=== PATIENT | female | born 1985 | race Caucasian/White ===

== ENCOUNTER 2018-01-04 05:37 | Inpatient (IN) | payer BC ==
[2018-01-04 05:59] VITALS: BMI 31.4
[2018-01-04] MEDS ORDERED: Ondansetron HCl/PF 4 MG/2 ML Vial IVP PRN (08:48)
[2018-01-04] MEDS ORDERED: Ibuprofen 800 MG TAB PO PRN (08:48)
[2018-01-04] MEDS ORDERED: NS / Oxytocin 40 units/1000ml 1,000 ML IV PRN (08:48)
[2018-01-04] MEDS ORDERED: HYDROcodone/Acetaminophen 5/325 mg Tablet PO PRN ×4 (08:48→19:39)
[2018-01-04] MEDS ORDERED: Methylergonovine 0.2 MG/ML VIAL IM PRN ×2 (08:48→19:39)
[2018-01-04] MEDS ORDERED: Lactated Ringer's 1,000 ML IV PRN (08:48)
[2018-01-04] MEDS ORDERED: Promethazine HCl 25 MG/ML VIAL IM PRN (08:48)
[2018-01-04] MEDS ORDERED: Lidocaine 1% (PF) 30 ML VIAL SC PRN (08:48)
[2018-01-04] MEDS ORDERED: Misoprostol 200 MCG TAB PR PRN (08:48)
--- NOTE | 2018-01-04 08:55 | PDOC.LDHP ---
Labor and Delivery H&P Chief complaint: contractions HPI: Patient started having mild contraction last night arou 1999. She rested and tried to sleep. At 0230 on 01/04/18 her contractions woke her up and were every 5mins lasting 45 seconds each. She does not report a loss of amniotic fluid and reports good movement. She arrived at the hospital at approximately 0600. Since arrival her contractions have gotten stronger, longer, and closer together. Current gestational age (weeks): 39 Dating criteria: last menstrual period Grav: 1 Para: 0 Allergies/Adverse Reactions: Allergies Allergy/AdvReac Type Severity Reaction Status Date / Time almond Allergy Mild Rash Verified 01/04/18 06:12 Milk Containing Products Allergy Mild Nausea Verified 01/04/18 06:12 strawberry Allergy Mild Rash Verified 01/04/18 06:12
[2018-01-04 09:05] LABS: Hemoglobin 13.5 g/dL (12.0-16.0); Mean Corpuscular Hemoglobin 31.6 pg (27.0-31.0); Mean Corpuscular Volume 90.5 fL (78.0-98.0); Mean Platelet Volume 7.8 fL (7.4-10.4); Platelet Count 204 thou/uL (130-400); RBC Distribution Width 12.1 % (11.5-14.5); Red Blood Cell (RBC) Count 4.27 mill/uL (4.20-5.40); White Blood Cell (WBC) Count 15.2 thou/uL (4.8-10.8)
[2018-01-04 09:47] LABS: HBSAg Index 0.19 S/CO (0-0.99); Hep B Surf Ag Non-Reactive S/CO (NonReactive); Syphilis Antibody Nonreactive (Nonreactive); Syphilis Antibody Index 0.04 S/CO (<1.00 Non-Reactive)
--- NOTE | 2018-01-04 17:45 | PDOC.OPDEL ---
OB Operative/Delivery Note Delivery Dr/Surgeon: MARK Sanchez Pre-Delivery Diagnosis: active labor Procedure/Post Delivery Dx: spontaneous vaginal delivery Weeks gestation: 39 Anesthesia: none - Findings A Sex: male Weight: 8 lb - 1 min: 8 - 5 min: 9 - Additional Findings/Plan Placenta delivered: spontaneous Repaired Obstetrical Laceration: 2nd degree Estimated blood loss: 400 ml. see nurses notes for qualitative
[2018-01-04] MEDS ORDERED: Misoprostol 200 MCG TAB VAG PRN (19:39)
[2018-01-04] MEDS ORDERED: Benzocaine/Menthol 20-0.5% 60 ML CAN TOP PRN (19:39)
[2018-01-04] MEDS ORDERED: Milk Of Magnesia 30 ML UDCUP PO PRN (19:39)
[2018-01-04] MEDS ORDERED: Bisacodyl 10 MG SUPP PR PRN (19:39)
[2018-01-04] MEDS ORDERED: NS / Oxytocin 40 units/1000ml 1,000 ML IV SCH (19:39)
[2018-01-04] MEDS: Docusate Calcium (SURFAK) 240 MG CAP PO SCH (20:21)
[2018-01-05] MEDS: Ibuprofen 800 MG TAB PO SCH ×3 (00:04→13:57)
[2018-01-05 06:09] LABS: Hemoglobin 11.5 g/dL (12.0-16.0); Mean Corpuscular HGB CONC 34.8 g/dL (32.0-36.0); Mean Corpuscular Hemoglobin 31.8 pg (27.0-31.0); Mean Corpuscular Volume 91.2 fL (78.0-98.0); Platelet Count 194 thou/uL (130-400); RBC Distribution Width 12.3 % (11.5-14.5); Red Blood Cell (RBC) Count 3.61 mill/uL (4.20-5.40); White Blood Cell (WBC) Count 17.2 thou/uL (4.8-10.8)
[2018-01-05] MEDS: Docusate Calcium (SURFAK) 240 MG CAP PO SCH (08:58)
[2018-01-05] MEDS ORDERED: Measles/Mumps/Rubella 10 MCG/0.5 ML VIAL SC ONE (09:00)
[2018-01-05] MEDS ORDERED: Adacel (T-DAP) 0.5 ML VIAL IM ONE (09:00)
[2018-01-05] MEDS ORDERED: Prenatal Vitamin 1 TAB PO SCH (09:00)
[2018-01-05] MEDS: Ferrous Sulfate 325 MG TAB PO SCH ×2 (10:10→13:58)
[2018-01-05 12:10] VITALS: BP 109/52; TEMP 97.6
--- NOTE | 2018-01-05 13:45 | PDOC.PP ---
Post Progress Note Post Day #: 1 Subjective: doing well, but having trouble with , cannot get nipple all the way in infants mouth. PO intake tolerated: yes Flatus: yes Ambulation: yes Vital Signs (12 hours) Temp Pulse Resp BP 01/05/18 12:10 97.6 F 87 20 109/52 L 01/05/18 11:40 97.6 F 87 20 01/05/18 08:20 97.8 F 76 20 01/05/18 08:07 97.8 F 76 20 103/55 L 01/05/18 05:15 98.2 F 86 16 110/59 L Weight Weight 201 lb - Physical Examination General: NAD Cardiovascular: no m/r/g, RRR Respiratory: clear to auscultation bilaterally Abdominal: + bowel sounds, lochia (minimal) Fundus firm & at: -1 Extremities: negative homans (B) Perineum: intact, minimal edema Psychiatric: A&Ox3, normal affect Result Diagrams: 01/05/18 05:36 Additional Labs: Post Labs Blood Type O POSITIVE 01/04/18 08:53 Hep Bs Antigen Non-Reactive S/CO (NonReactive) 01/04/18 08:53 (1) (spontaneous vaginal delivery) Code(s): O80 - ENCOUNTER FOR FULL-TERM UNCOMPLICATED DELIVERY Status: Acute - Assessment/Plan A: G1 now P1 sp following spontaneous labor with 2nd degree laceration. NML day one exam. assistance provided at the bedside. P: Discharge home after 24 hours, if infant is discharged. routine care until discharge. consultation as needed. exam at 6 weeks.
== END 2018-01-05 17:45 | disposition home or self-care (01) | DRG 775 ==
LOC: L&D/OP 05:37 → L&D-LIB 09:41 → 3SW 18:40
PROVIDERS: ADMIT Student in an Organized Health Care Education/Training Program; ATTEND Student in an Organized Health Care Education/Training Program
PROC: 10E0XZZ Delivery of Products of Conception, External Approach (ICD-10-PCS; principal; 2018-01-04)
PROC: 0KQM0ZZ Repair Perineum Muscle, Open Approach (ICD-10-PCS; 2018-01-04)
DX: O70.1 Second degree perineal laceration during delivery (principal); Z37.0 Single live birth; Z3A.39 39 weeks gestation of pregnancy
CPT/HCPCS: 36415; 85027; 86780; 86850; 86900; 86901; 87340; 99285; J2001

== ENCOUNTER 2018-03-14 17:11 | Outpatient (CLI) | payer OTHER ==
--- NOTE | 2018-03-14 18:53 | RAD ---
LUMBAR SPINE THREE VIEWS: HISTORY: Low back pain. FINDINGS: The lumbar vertebrae maintain normal height and alignment. Disk spaces are maintained. No osseous a bnormality is seen. IMPRESSION: Unremarkable lumbar spine. POS: AGW
--- NOTE | 2018-03-14 19:19 | RAD ---
THORACIC SPINE THREE VIEWS: HISTORY: Low back pain. FINDINGS: There is mild scoliosis of the thoracic spine. No fracture, subluxation, or bony destruction is iden tified. POS: RAJNI
== END 2018-03-14 17:12 | disposition home or self-care (01) ==
LOC: RAD 17:11
PROVIDERS: ATTEND Family Medicine
DX: M54.6 Pain in thoracic spine (principal); M54.5 Low back pain
CPT/HCPCS: 72072; 72100

== ENCOUNTER 2018-03-15 14:44 | Outpatient (CLI) | payer OTHER ==
--- NOTE | 2018-03-15 16:17 | RAD ---
CERVICAL SPINE SERIES THREE VIEWS: 03/15/2018 HISTORY: Neck pain. Numbness from mid chest down. FINDINGS: There is a reversal to the normal cervical curve, which could be related to muscle spasm. Vertebral bodies are normal in height. There is slight disk narrowing at C5-C6. Facets appear to be in normal alignment. IMPRESSION: 1. Mild reversal to the normal cervical curve, which could be related to positioning or muscle spasm . 2. Very mild disk narrowing at the C5-C6 level. POS: JORGE
== END 2018-03-15 14:45 | disposition home or self-care (01) ==
LOC: TBSIIMAG 14:44
PROVIDERS: ATTEND Family Medicine
DX: M54.6 Pain in thoracic spine (principal); M50.322 Other cervical disc degeneration at C5-C6 level
CPT/HCPCS: 72040

== ENCOUNTER 2018-08-05 17:58 | Day surgery (SDC) | payer BC, OTHER ==
[2018-08-05] MEDS ORDERED: methylPREDNISolone Sod Succ 1 GM in Sodium Chloride 0.9% 250 ML 250 ML IVPB SCH (21:00)
== END 2018-08-05 21:27 | disposition home or self-care (01) ==
LOC: ER/OP 17:58
PROVIDERS: ATTEND Registered Nurse Emergency
DX: G35 Multiple sclerosis (principal); Z91.011 Allergy to milk products; Z91.018 Allergy to other foods
CPT/HCPCS: J2930; J7050